=== PATIENT | female | born 1985 | race Caucasian/White ===

== ENCOUNTER 2021-05-27 15:05 | Emergency (ER) | payer SELFPAY | END 2021-05-27 16:21 | disposition home or self-care (01) | LOC: CSHERS 15:05 | DX: T19.2XXA Foreign body in vulva and vagina, initial encounter (principal); E11.9 Type 2 diabetes mellitus without complications | CPT/HCPCS: 99283 ==

== ENCOUNTER 2023-04-17 19:23 | Emergency (ER) | payer SELFPAY ==
[2023-04-17] MEDS ORDERED: cefTRIAXone (ROCEPHIN) 500 MG VIAL ONE (20:08)
[2023-04-17] MEDS ORDERED: Lidocaine 1% PF 5 ML VIAL ONE (20:09)
[2023-04-18 00:53] LABS: GC by PCR, Vaginal Swab Not Detected (NotDetected)
== END 2023-04-17 20:14 | disposition home or self-care (01) ==
LOC: CSHERS 19:23
DX: T19.2XXA Foreign body in vulva and vagina, initial encounter (principal); E11.9 Type 2 diabetes mellitus without complications
CPT/HCPCS: 87480; 87510; 87591; 87660; 96372; 99283; J0696